=== PATIENT | male | born 1940 | race Caucasian/White ===

== ENCOUNTER 2017-08-29 12:22 | Emergency (ER) | payer MEDICARE, OTHER ==
[~2017-08-29] VITALS: Ht 175.3 cm; Wt 75.0 kg
[2017-08-29 12:42] VITALS: BP 130/82
[2017-08-29] MEDS ORDERED: KETOROLAC 30 MG/1 ML ONE (12:58)
[2017-08-29] MEDS ORDERED: KETOROLAC 30 MG/1 ML IM ONE (13:00)
== END 2017-08-29 13:39 | disposition home or self-care (01) ==
LOC: ED 13:33
DX: M13.172 Monoarthritis, not elsewhere classified, left ankle and foot (principal); M10.9 Gout, unspecified
CPT/HCPCS: 96372; 99283; J1885